=== PATIENT | male | born 1980 | race African-American/Black ===

== ENCOUNTER 2021-07-19 17:19 | Emergency (ER) | payer MEDICAID ==
[~2021-07-19] VITALS: Ht 172.7 cm; Wt 77.0 kg
[~2021-07-19 17:19] MED LIST: APIX5TAB MT; ARIP300S IM; LEVO750T46 MT; METR-167 MT
[2021-07-19] MEDS ORDERED: LEVETIRACETAM 1000MG PREMIX 100 ML IV ONE (18:00)
[2021-07-19 18:12] LABS: CHLORIDE 105 mEq/L (98-107)
[2021-07-19 18:15] LABS: BASOPHILS % 1.1 % (0.0-2.0); EOSINOPHILS % 3.3 % (0.0-5.0); HEMATOCRIT. 39.9 % (42.0-52.0); HEMOGLOBIN. 14.3 g/dL (14.0-18.0); LYMPHOCYTES % 27.9 % (20.0-50.0); MEAN CORPUSCULAR HEMOGLOBIN 28.8 pg (28.0-32.0); MEAN CORPUSCULAR VOLUME 80.7 fL (80.0-94.0); MEAN PLATELET VOLUME 7.5 fl (7.4-10.4); NEUTROPHILS % 61.7 % (40.0-76.0); PLATELET 223 x1000/uL (130-400); RED BLOOD CELL COUNT 4.95 mill/uL (4.7-6.1); RED CELL DISTRIBUTION WIDTH 13.1 % (11.6-14.6)
[2021-07-19 18:20] LABS: CLARITY URINE CLEAR (CLEAR); COLOR URINE YELLOW (YELLOW); KETONES URINE TRACE (NEGATIVE); LEUKOCYTE ESTERASE URINE NEGATIVE (NEGATIVE); NITRITE URINE NEGATIVE (NEGATIVE); OCCULT BLOOD URINE NEGATIVE (NEGATIVE); PH URINE 5.5 (4.5-8.0); PROTEIN URINE 1+ (NEGATIVE); SPECIFIC GRAVITY URINE 1.024 (1.005-1.030); UROBILINOGEN URINE 0.2 E.U./dL (0.2-1.0)
[2021-07-19] MEDS ORDERED: KEPP500 MT (20:19)
[2021-07-19 21:43] VITALS: BP 118/78
== END 2021-07-19 21:45 | disposition home or self-care (01) ==
LOC: ER 17:19
DX: R56.9 Unspecified convulsions (principal); R32 Unspecified urinary incontinence; F15.10 Other stimulant abuse, uncomplicated; Z79.899 Other long term (current) drug therapy
CPT/HCPCS: 36415; 70450; 80053; 81003; 82962; 85025; 96365; 99284; J1953

== ENCOUNTER 2021-09-15 00:50 | Emergency (ER) | payer MEDICAID ==
[~2021-09-15] VITALS: Ht 172.7 cm; Wt 80.0 kg
[~2021-09-15 00:50] MED LIST changes: +KEPP500 MT
[2021-09-15 01:00] VITALS: BP 140/91
[2021-09-15] MEDS ORDERED: TETANUS, DIPHTHERIA, PERTUSSIS VAC/PF 0.5ML (>10YR OLD) IM ONE (02:00)
[2021-09-15] MEDS ORDERED: TOPUD MT (03:27)
[2021-09-15] MEDS ORDERED: ACETAMINOPHEN 325MG TABLET PO ONE (03:30)
[2021-09-15] MEDS ORDERED: IBUPROFEN 400MG TABLET PO ONE (03:30)
== END 2021-09-15 04:04 | disposition home or self-care (01) ==
LOC: ER 00:50
DX: S60.450A Superficial foreign body of right index finger, initial encounter (principal); W22.8XXA Striking against or struck by other objects, initial encounter; M79.644 Pain in right finger(s); Y93.89 Activity, other specified; Y92.89 Other specified places as the place of occurrence of the external cause; Y99.8 Other external cause status; F14.10 Cocaine abuse, uncomplicated; F15.10 Other stimulant abuse, uncomplicated; Z79.899 Other long term (current) drug therapy
CPT/HCPCS: 73140; 99283

== ENCOUNTER 2021-10-19 03:59 | Emergency (ER) | payer MEDICAID ==
[~2021-10-19] VITALS: Ht 172.7 cm; Wt 72.0 kg
[~2021-10-19 03:59] MED LIST changes: +TOPUD MT
[2021-10-19 04:30] VITALS: BP 144/84
[2021-10-19 04:30] LABS: BASOPHILS % 0.2 % (0.0-2.0); EOSINOPHILS % 7.6 % (0.0-5.0); HEMATOCRIT. 39.7 % (42.0-52.0); HEMOGLOBIN. 13.6 g/dL (14.0-18.0); LYMPHOCYTES % 58.8 % (20.0-50.0); MEAN CORPUSCULAR HEMOGLOBIN 28.1 pg (28.0-32.0); MEAN CORPUSCULAR VOLUME 81.8 fL (80.0-94.0); MEAN PLATELET VOLUME 7.3 fl (7.4-10.4); MONOCYTES % 10.2 % (2.0-8.0); NEUTROPHILS % 23.2 % (40.0-76.0); PLATELET 286 x1000/uL (130-400); RED BLOOD CELL COUNT 4.85 mill/uL (4.7-6.1); RED CELL DISTRIBUTION WIDTH 12.6 % (11.6-14.6)
[2021-10-19 04:31] LABS: CHLORIDE 105 mEq/L (98-107)
[2021-10-19 04:43] LABS: ETHANOL BLOOD < 10 mg/dL
== END 2021-10-19 05:50 | disposition left against medical advice (07) ==
LOC: ER 04:35
DX: F15.188 Other stimulant abuse with other stimulant-induced disorder (principal); R45.851 Suicidal ideations; F14.10 Cocaine abuse, uncomplicated; F32.A Depression, unspecified
CPT/HCPCS: 36415; 80053; 80307; 80320; 80329; 85025; 99283; G0480